=== PATIENT | female | born 1955 | race Caucasian/White ===

== ENCOUNTER 2023-05-16 13:16 | Outpatient (OUT) | payer MEDICARE, OTHER, SELFPAY ==
--- NOTE | 2023-05-16 13:21 | XR_ITS ---
The [address] [address] Patient Name: MAXWELL DAVIES MRN: [id number] date: 1955 Sex: F Assigned Patient Location: [facility] Current Patient Location: Accession/Order Number: [id number] Exam Date: 05/16/2023 13:20 Report Date: 05/17/2023 07:33 At the request of: SUZIE MADRID Procedure: XR foot RT min 3V PROCEDURE: XR foot RT min 3V COMPARISON: HISTORY: RIGHT FOOT PAIN FINDINGS: BONES:Again demonstrated is an oblique fracture through the distal diaphysis of the third metatarsal with sclerosis of the fracture margins. No interval bone formation with incomplete bony bridging. No new fracture or dislocation. Moderate enthesopathic spurring of the calcaneus at the Achilles insertion SOFT TISSUES:Negative. No visible soft tissue swelling. EFFUSION:None visible. OTHER: Negative. XR/XR foot RT min 3V IMPRESSION: Stable third metatarsal fracture with incomplete bony bridging/nonunion Electronically authenticated by: MARY LUGO Date: 05/17/2023 07:33
== END 2023-05-16 13:17 | disposition home or self-care (01) ==
LOC: RAD 13:16
PROVIDERS: PCP Family Medicine; Visit Provider Physician Assistant
DX: M84.374G Stress fracture, right foot, subsequent encounter for fracture with delayed healing (principal)
CPT/HCPCS: 73630

== ENCOUNTER 2023-08-09 08:28 | Outpatient (OUT) | payer MEDICARE, OTHER, SELFPAY ==
--- NOTE | 2023-08-09 | ECG_ITS ---
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
== END 2023-08-09 08:29 | disposition home or self-care (01) ==
LOC: CARD 08:28
PROVIDERS: PCP Family Medicine; Visit Provider Family Medicine
DX: I10 Essential (primary) hypertension (principal)
CPT/HCPCS: 93005

== ENCOUNTER 2023-09-13 09:17 | Outpatient (RCR) | payer MEDICARE, OTHER, SELFPAY | END 2023-10-04 11:12 | disposition home or self-care (01) | LOC: PT 09:17 | PROVIDERS: PCP Family Medicine; Visit Provider Orthopaedic Surgery | DX: Z96.652 Presence of left artificial knee joint (principal); Z47.1 Aftercare following joint replacement surgery | CPT/HCPCS: 97110; 97161 ==

== ENCOUNTER 2023-12-10 12:57 | Outpatient (RCR) | payer MEDICARE, OTHER, SELFPAY | END 2023-12-19 11:24 | disposition home or self-care (01) | LOC: PT 12:57 | PROVIDERS: PCP Family Medicine | DX: Z96.651 Presence of right artificial knee joint (principal); Z47.1 Aftercare following joint replacement surgery; M25.561 Pain in right knee; R26.9 Unspecified abnormalities of gait and mobility; R26.89 Other abnormalities of gait and mobility | CPT/HCPCS: 97110; 97161 ==

== ENCOUNTER 2025-02-22 10:19 | Outpatient (OUT) | payer MEDICARE, OTHER, SELFPAY ==
[2025-02-22 11:11] LABS: Basophils Percent Auto 0.8 % (0.2-2.0); Eosinophils Absolute Auto 0.2 10^3/uL (0.0-0.7); Hematocrit 41.3 % (36.0-48.0); Hemoglobin 13.8 g/dL (12.0-16.0); Immature Granulocytes Abs Auto 0.02 10^3/uL (0.00-0.03); Immature Granulocytes Pct Auto 0.4 % (0.0-0.5); Lymphocytes Percent Auto 18.4 % (20.5-60.0); Mean Corpuscular HGB Conc 33.4 g/dL (29.9-35.2); Mean Corpuscular Hemoglobin 30.2 pg (26.7-34.0); Mean Corpuscular Volume 90.4 fL (81.0-99.0); Mean Platelet Volume 11.5 fL (9.5-13.5); Monocytes Absolute Auto 0.5 10^3/uL (0.3-0.8); Monocytes Percent Auto 9.2 % (1.7-12.0); Neutrophils Absolute Auto 3.5 10^3/uL (1.4-6.5); Neutrophils Percent Auto 67.2 % (43.0-75.0); Platelet Count 210 10^3/uL (150-450); Red Blood Count 4.57 10^6/uL (4.20-5.40); Red Cell Distribution Width 12.6 % (11.0-15.0); White Blood Count 5.2 10^3/uL (4.0-11.0)
[2025-02-22 11:34] LABS: Creatinine Urine Random 49.18 mg/dL (20.00-300.00); Microalbumin Urine Random <1.3 mg/dL (<=30.0)
[2025-02-22 11:49] LABS: Anion Gap 14.2; BUN Creatinine Ratio 15.3; Carbon Dioxide 26.6 mmol/L (21.0-32.0); Chloride 105 mmol/L (98-107); Estimated GFR (African America >60 (>=60 mL/min/1.73m^2); Estimated GFR (Non-African Ame >60 (>=60 mL/min/1.73m^2); Glucose 95 mg/dL (74-106); Potassium 3.8 mmol/L (3.5-5.1); Sodium 142 mmol/L (136-145)
== END 2025-02-22 10:20 | disposition home or self-care (01) ==
LOC: LAB 10:22
PROVIDERS: PCP Family Medicine; Visit Provider Family Medicine
DX: E55.9 Vitamin D deficiency, unspecified (principal); I10 Essential (primary) hypertension
CPT/HCPCS: 36415; 80048; 82043; 82306; 82570; 85025